=== PATIENT | female | born 1960 | race Caucasian/White ===

== ENCOUNTER 2017-07-14 08:51 | Inpatient (IN) | payer OTHER ==
[2017-06-22 08:46] VITALS: Ht 157.5 cm; Wt 81.6 kg
--- NOTE | 2017-06-22 09:17 | PAT Medication Instructions ---
Service Date Jun 22, 2017. Current Home Medication List Acetaminophen (Tylenol), 325 MG PO QD PRN for Pain Black Pepper-Turmeric (Turmeric Curcumin Complex 500-3 mg), 1 CAP PO QAM Cholecalciferol (Vitamin D3), 1 CAP PO QAM Fluticasone Propionate (Nasal) (Flonase Allergy Relief), 1 SPRAY NA QAM Montelukast Sodium (Singulair), 10 MG PO QAM Medication Instructions For Your Scheduled Surgery - Hold the following medications 2 weeks prior to surgery: Black Pepper-Turmeric (Turmeric Curcumin Complex 500-3 mg), 1 CAP PO QAM - Hold the following medications per your surgeon's instructions: Cholecalciferol (Vitamin D3), 1 CAP PO QAM - Take the following medications the morning of surgery with a sip of water: Fluticasone Propionate (Nasal) (Flonase Allergy Relief), 1 SPRAY NA QAM Montelukast Sodium (Singulair), 10 MG PO QAM Acetaminophen (Tylenol), 325 MG PO QD PRN for Pain (if needed, can be taken up to four hours before surgery) - Take the following medications as scheduled the night before surgery: Acetaminophen (Tylenol), 325 MG PO QD PRN for Pain (if needed) If you have any questions please call us at [phone] or [phone] or [phone]
[2017-06-22 11:02] LABS: BASO % 0.3 %; BASO ABS # 0.02 K/uL (0-0.2); EOS ABS # 0.07 K/uL (0-0.5); HEMATOCRIT 44.2 % (37-47); HEMOGLOBIN 15.1 g/dL (12.0-16.0); IG# 0.01 K/uL (0.00-0.02); LYMPH % 29.7 %; LYMPH ABS # 2.01 K/uL (1.2-3.4); MEAN CELL VOLUME 88.6 fL (80-100); MEAN CORPUSCULAR HEMOGLOBIN 30.3 pg (25-34); MEAN CORPUSCULAR HGB CONC 34.2 g/dl (32-36); MEAN PLATELET VOLUME 10.7 fL (7.4-10.4); MONO ABS # 0.34 K/uL (0.11-0.59); NEUT % 63.9 %; NEUT ABS # 4.31 K/uL (1.4-6.5); PLATELET COUNT 264 K/uL (130-400); RED CELL DISTRIBUTION WIDTH CV 13.8 % (11.5-14.5); RED CELL DISTRIBUTION WIDTH SD 44.8 fL (36.4-46.3); WHITE BLOOD COUNT 6.76 K/uL (4.8-10.8)
--- NOTE | 2017-06-22 11:09 | DIAGNOSTIC IMAGING REPORT ---
CHEST 2 VIEWS ROUTINE CLINICAL HISTORY: 57 years-old Female presenting with preoperative assessment. TECHNIQUE: PA and lateral views of the chest were obtained. COMPARISON: None. FINDINGS: Cardiomediastinal silhouette normal. Bandlike opacity at the left lung base. No other focal opacity. No pleural effusion or pneumothorax. Osseous structures normal. Upper abdomen normal. IMPRESSION: 1. Minimal left basilar atelectasis or scarring. No acute cardiopulmonary disease. Electronically signed by: Manny Wong M.D. 06/22/2017 11:08 AM Dictated Date/Time: 06/22/2017 11:07 AM
[2017-06-22 11:14] LABS: PTT PATIENT 26.4 SECONDS (21.0-31.0)
[2017-06-22 11:33] LABS: CREATININE 0.81 mg/dl (0.60-1.20); POTASSIUM 3.9 mmol/L (3.5-5.1)
--- NOTE | 2017-07-13 18:46 | HISTORY & PHYSICAL EXAMINATION ---
DATE OF ADMISSION: 07/14/2017 CHIEF COMPLAINT: Avascular necrosis of the right hip. HISTORY OF PRESENT ILLNESS: Ritu is a pleasant 57-year-old female who has been dealing with a several year history of increasing right hip pain. X-rays, clinical examination, and MRI of her hip have been diagnostic for avascular necrosis. After failing extensive conservative treatment, she has elected to proceed with a total hip arthroplasty. PAST MEDICAL HISTORY: Seasonal allergies. PAST SURGICAL HISTORY: Significant for surgery to her right clavicle. ALLERGIES: PENICILLIN. MEDICATIONS: Singulair, vitamin D, Flonase, turmeric, and ibuprofen. FAMILY HISTORY: Significant for diabetes. SOCIAL HISTORY: The patient is , rarely drinks and is very active prior to this hip pain. REVIEW OF SYSTEMS: She complains of right hip pain. All other pertinent review of systems are negative. PHYSICAL EXAMINATION: GENERAL: She is awake, alert and oriented x3. She is in no apparent distress. She is very pleasant. HEENT: Pupils are equal, round, reactive light. Extraocular movements are intact. Oral mucosa is pink and moist. HEART: Regular rate per radial pulse. LUNGS: Lupe symmetrically bilaterally with no audible breath sounds. ABDOMEN: Soft, nontender, nondistended. MUSCULOSKELETAL: On physical examination of the right hip, her leg lengths are equal. She can flex her hip to about 90 degrees. She has a lot of groin pain. She has pain with internal and external rotation of her hip. She only has about 10 degrees of forced internal rotation. She has 5/5 muscle strength to straight leg raise. IMAGING DATA: X-rays of the right hip do show advancing arthritis. There is some joint space narrowing and some signs of avascular necrosis. MRI of the right hip was read as avascular necrosis of the femoral head without significant collapse at this point. There is also some mild degenerative arthritis. IMPRESSION: Avascular necrosis of the right hip. PLAN: Will proceed with a right anterior total hip arthroplasty. Postoperatively, she will be kept on aspirin for DVT prophylaxis and kept overnight at the hospital for postoperative medical management.
[~2017-07-14] VITALS: Ht 157.5 cm; Wt 81.6 kg
[2017-07-14] VITALS (10 sets, daily range): BP systolic 88–162; BP diastolic 55–98; PULSE 66–102; TEMP 36.4–37; O2SAT 98–100
[~2017-07-14 08:51] MED LIST: ACET-1311 PO; ACETAMINOPHEN 500 MG TAB PO SCH; BLAC1CAP4 PO; BUPIVACAINE 0.5 % 5 MG/1 ML PF 10ML VIAL ONE; CEFAZOLIN 2000MG IV PUSH 15 ML IV SCH; CHOL2000 PO; FAMOTIDINE 20 MG TAB PO SCH; FLUT0.15; GABAPENTIN 300 MG CAP PO SCH; LACTATED RINGER'S 1000ML 1,000 ML IV SCH; LACTATED RINGER'S 1000ML IV SCH; MONT1TAB3 PO; ROPIVACAINE 5MG/ML 30 ML 150 MG, BUPIVACAINE 0.5% MPF INJ 30 ML, EpINEphrine HCL INJ 0.... INFIL SCH
--- NOTE | 2017-07-14 08:58 | History & Physical Bridge Note ---
H&P Re-Evaluation Bridge Note: I have examined the patient, reviewed the History & Physical and in the interval since the performance of the History & Physical I have noted the following changes of clinical significance: No changes noted
[2017-07-14] MEDS ORDERED: KETO10TA PO (09:05)
[2017-07-14] MEDS ORDERED: OXYC-57 PO (09:05)
[2017-07-14] MEDS ORDERED: MIDAZOLAM HCL 1 MG/ML 2ML VIAL ONE ×2 (09:12)
[2017-07-14] MEDS ORDERED: FENTANYL CITRATE INJ 50 MCG/1 ML 2 ML VIAL ONE (09:12)
[2017-07-14] MEDS ORDERED: ORTHO JOINT ANESTHETIC ONE (09:12)
[2017-07-14] MEDS ORDERED: BACITRACIN 50000 UNIT VIAL ONE (09:12)
[2017-07-14] MEDS ORDERED: ATROPINE SULFATE 0.1 MG/ML 5ML SYR IV PRN (09:45)
[2017-07-14] MEDS ORDERED: EpHEDrine SULFATE INJ 50 MG/ML AMP IV PRN (09:45)
[2017-07-14] MEDS ORDERED: FENTANYL CITRATE INJ 50 MCG/1 ML 2 ML VIAL IV PRN (09:45)
[2017-07-14] MEDS ORDERED: ONDANSETRON INJ 2 MG/ML 2 ML VIAL IV PRN ×2 (09:45→12:00)
[2017-07-14] MEDS: TRANEXAMIC ACID INJ 1,000 MG x 2 Bags IV SCH ×4 (09:47→15:05)
[2017-07-14] MEDS ORDERED: PHENYLEPHRINE 100MCG/ML 5ML SYR ONE (10:48)
[2017-07-14] MEDS ORDERED: EpHEDrine SULFATE 50MG/5ML SYR ONE (10:48)
[2017-07-14] MEDS ORDERED: PROPOFOL IV EMULSION 10 MG/ML 20 ML VIAL IV ONE ×4 (10:48→11:32)
--- NOTE | 2017-07-14 11:51 | DIAGNOSTIC IMAGING REPORT ---
R HIP UNILATERAL 1 VIEW CLINICAL HISTORY: Right anterior total hip arthroplasty Fluoroscopy time: 41 seconds FINDINGS: 2 fluoroscopic spot images of the right hip demonstrate a right total hip arthroplasty. The hardware appears intact. No fracture or dislocation identified. IMPRESSION: Fluoroscopy provided for right total hip arthroplasty. Electronically signed by: Dario Robledo M.D. 07/14/2017 11:49 AM Dictated Date/Time: 07/14/2017 11:49 AM
--- NOTE | 2017-07-14 11:54 | [facility] Post Operative Brief Note ---
Immediate Operative Summary Operative Date Jul 14, 2017. Pre-Operative Diagnosis Avascular Necrosis of the Right Hip. Post-Operative Diagnosis Same Procedure(s) Performed Right Total Anterior Hip Arthroplasty, Uncemented Surgeon Dr. Louis Hernandez Saddle Lining Stitcher Surgeon(s) Jama Richardson PA-C Estimated Blood Loss 350ml Findings Consistent with Post-Op Diagnosis Specimens A.) Right Femoral Head Anesthesia Type MAC Spinal Regional Complication(s) head of acetabular screw broke off. Head retreived. Good press-fit of the cup. No further action necessary Disposition Disposition: Recovery Room / PACU
[2017-07-14] MEDS ORDERED: FLUMAZENIL 0.1 MG/1 ML 10 ML VIAL IV ONE (11:55)
[2017-07-14] MEDS ORDERED: MoRPHine SULFATE 2 MG/ML CARP IV PRN (12:00)
[2017-07-14] MEDS ORDERED: MAGNESIUM HYDROXIDE SUSP 30 ML UDC PO PRN (12:00)
[2017-07-14] MEDS ORDERED: CEFAZOLIN IV 2,000 MG in DEXTROSE 5% 50ML 50 ML IV SCH (12:00)
[2017-07-14] MEDS ORDERED: SOD PHOSPHATE/SOD BIPHOSPHATE ENEMA 132 ML BTL PR PRN (12:00)
[2017-07-14] MEDS ORDERED: OXYCODONE HCL IR 5 MG TAB (IMMEDIATE RELEASE) PO PRN (12:00)
[2017-07-14] MEDS ORDERED: BISACODYL 10 MG SUPP PR PRN (12:00)
[2017-07-14] MEDS ORDERED: METOCLOPRAMIDE HCL INJ 5 MG/ML 2 ML VIAL IV PRN (12:00)
--- NOTE | 2017-07-14 12:48 | OPERATIVE REPORT ---
DATE OF OPERATION: 07/14/2017 PREOPERATIVE DIAGNOSIS: Avascular necrosis of the right hip. POSTOPERATIVE DIAGNOSIS: Same. PROCEDURE: Right anterior total hip arthroplasty. SURGEON: Dr. Louis Hernandez. CHEMICAL ENGINEERING INTERN: Jama Richardson PA-C, whose assistance was necessary for retraction and closure. ANESTHESIA: Spinal with sedation. COMPLICATIONS: There was a head of the acetabular screw broke off. The head was retrieved. There was an excellent press fit of the cup and no further fixation was necessary. CONDITION: Stable to PACU. IMPLANTS USED: I used a [employer]omet Taperloc total hip arthroplasty system with a size 8 mm high offset Taperloc stem, a 50 mm G7 cup, a 36 mm neutral liner, a 36 mm ceramic head with a -6 neck and a single 6.5 x 30 mm screw which the head broke off of. INDICATIONS: Ritu is a pleasant 57-year-old female who presented to my office with increasing right hip and groin pain. X-rays, MRI and clinical examination were diagnostic for avascular necrosis of the right hip. After failing conservative treatment, she elected to undergo a total hip arthroplasty. OPERATION AND FINDINGS: On 07/14/2017, she arrived at [facility] for the above procedure. She was seen in preoperative holding and the operative extremity was identified and signed. She was given a preoperative antibiotic and a spinal anesthetic. She was taken back to the operating room, laid on the table in supine position and given basic sedation. The right hip was then brought out to a PURIST leg positioner. The right hip was then prepped and draped in sterile fashion. Time-out was done, and the patient and operative extremity was properly identified. An anterior approach was used. Dissection was taken down through the fascia and the tensor was retracted laterally and the rectus was retracted medially. The circumflex vessels were ligated. The capsule was incised and tagged for later repair. The femoral neck was exposed. The femoral neck was then resected and the head was removed. The acetabulum was then exposed. Time was spent doing a complete circumferential labral release. Sequential reaming of the acetabulum up to a size 49 reamer was done. This gave good circumferential bleeding bone. Final reamings were done under fluoroscopy to ensure appropriate version. A size 50 mm G7 cup was then impacted into place. I was able to get an excellent press fit. A single 6.5 x 30 mm screw was placed. On final turning of the screw, the head broke off of the screw. The head was retrieved. I did get such a good press fit that I did not feel that any further fixation was necessary. The 36 mm neutral liner was then snapped into place. The surrounding soft tissues were injected with 100 mL of an orthopedic pain control cocktail. The proximal femur was then exposed. Sequential broaching up to a size 8 broach was done. A high offset neck and a standard head were trialed. The hip was reduced. I was happy with the size of the implants, but the leg seemed to be long. The hip was then dislocated. The broach was removed. The final size 8 mm high offset stem was then impacted into place. A 36 mm ceramic head with -6 neck was then impacted into place. The hip was then reduced. Final fluoroscopic images showed anatomic alignment and good sizing of the components. The wound was then irrigated with 3 liters normal saline solution with bacitracin. The capsule was then closed with #1 Vicryl suture. A drain was placed. Fascia was closed with #1 PDS suture. Skin was closed with 2-0 Vicryl and anum. A Prevena VAC dressing was placed. She was then taken to the postanesthesia care in stable condition. She tolerated the procedure well. I attest to the content of the Intraoperative Record and any orders documented therein. Any exception s are noted below.
--- NOTE | 2017-07-14 12:52 | DIAGNOSTIC IMAGING REPORT ---
AP PELVIS, CROSSTABLE LATERAL RIGHT HIP History: Right total hip arthroplasty. Degenerative arthritis. Postop. FINDINGS: The patient is status post a right total hip arthroplasty. The hardware is intact. No fracture or dislocation. Skin anum and surgical drains are in place. IMPRESSION: Right total hip arthroplasty. No evidence for hardware complication Electronically signed by: Dario Robledo M.D. 07/14/2017 12:51 PM Dictated Date/Time: 07/14/2017 12:45 PM
--- NOTE | 2017-07-14 13:36 | Anesthesiology Progress Note ---
Anesthesia Post Op Note Date & Time Jul 14, 2017 at 13:36 Vital Signs Pain Intensity: 0 Vital Signs Past 12 Hours Date Time Temp Pulse Resp B/P (MAP) Pulse Ox O2 Delivery O2 Flow Rate FiO2 07/14/17 13:18 62 14 07/14/17 13:18 63 14 100 07/14/17 13:15 94/63 07/14/17 13:13 63 12 100 07/14/17 13:13 64 12 07/14/17 13:10 95/63 07/14/17 13:08 65 14 100 07/14/17 13:08 60 14 07/14/17 13:05 95/67 07/14/17 13:03 65 15 07/14/17 13:03 65 15 100 07/14/17 13:02 96/63 07/14/17 13:00 37.1 70 14 96/63 100 Nasal Cannula 2 07/14/17 12:58 69 25 07/14/17 12:58 69 25 100 07/14/17 12:56 94/58 07/14/17 12:53 74 28 07/14/17 12:53 75 28 100 07/14/17 12:52 81 36 07/14/17 12:52 82 36 99/63 100 07/14/17 12:47 74 24 07/14/17 12:47 75 24 100 07/14/17 12:46 107/68 07/14/17 12:42 75 18 07/14/17 12:42 74 18 100 07/14/17 12:41 121/54 07/14/17 12:37 80 22 07/14/17 12:37 78 22 100 07/14/17 12:36 90/57 07/14/17 12:32 82 25 100 07/14/17 12:32 86 25 07/14/17 12:31 96/63 07/14/17 12:27 88 17 07/14/17 12:27 87 17 100 07/14/17 12:26 102/68 07/14/17 12:22 86 25 07/14/17 12:22 86 25 100 07/14/17 12:21 120/91 07/14/17 12:19 100/67 07/14/17 12:17 88 19 07/14/17 12:17 85 19 100 07/14/17 12:12 88 25 07/14/17 12:12 88 25 100 07/14/17 12:07 36.6 82 16 111/76 99 Oxymask 10 07/14/17 12:07 95 23 111/76 100 07/14/17 12:07 95 23 07/14/17 09:37 37 71 18 162/98 100 Room Air Notes Mental Status: alert / awake / arousable, participated in evaluation Pt Amnestic to Procedure: Yes Nausea / Vomiting: adequately controlled Pain: adequately controlled Airway Patency, RR, SpO2: stable & adequate BP & HR: stable & adequate Hydration State: stable & adequate Neuraxial Anesthesia: was administered, sensory block is resolving Anesthetic Complications: no major complications apparent
[2017-07-14] MEDS: SODIUM CHLORIDE 0.9% 1000ML 1,000 ML IV SCH ×2 (15:03→20:13)
[2017-07-14] MEDS: KETOROLAC TROMETHAMINE 30 MG/ML VIAL IV. SCH ×2 (15:03→20:23)
[2017-07-14] MEDS: CEFAZOLIN IV 2,000 MG in SYRINGE 0 ML IV SCH (19:24)
[2017-07-14 19:27] LABS: BASO % 0.1 %; BASO ABS # 0.01 K/uL (0-0.2); HEMATOCRIT 31.2 % (37-47); HEMOGLOBIN 10.7 g/dL (12.0-16.0); IG# 0.04 K/uL (0.00-0.02); LYMPH % 7.6 %; LYMPH ABS # 0.97 K/uL (1.2-3.4); MEAN CELL VOLUME 87.6 fL (80-100); MEAN CORPUSCULAR HEMOGLOBIN 30.1 pg (25-34); MEAN CORPUSCULAR HGB CONC 34.3 g/dl (32-36); MEAN PLATELET VOLUME 10.4 fL (7.4-10.4); MONO % 4.6 %; MONO ABS # 0.59 K/uL (0.11-0.59); NEUT % 87.4 %; NEUT ABS # 11.11 K/uL (1.4-6.5); PLATELET COUNT 216 K/uL (130-400); RED CELL DISTRIBUTION WIDTH CV 13.5 % (11.5-14.5); RED CELL DISTRIBUTION WIDTH SD 43.6 fL (36.4-46.3); WHITE BLOOD COUNT 12.72 K/uL (4.8-10.8)
[2017-07-14] MEDS ORDERED: NURSING VERBAL MED ORDER ONE ×2 (19:30→19:45)
[2017-07-14] MEDS ORDERED: SODIUM CHLORIDE 0.9% 1000ML 1,000 ML IV ONE (19:45)
[2017-07-14 19:56] LABS: ALBUMIN 2.8 gm/dl (3.4-5.0); CREATININE 1.19 mg/dl (0.60-1.20); POTASSIUM 3.7 mmol/L (3.5-5.1)
[2017-07-14] MEDS: ACETAMINOPHEN IV 1,000 MG in EMPTY BAG 0 ML IV SCH (20:14)
[2017-07-14] MEDS: SENNA 8.6 MG TAB PO SCH (20:18)
[2017-07-14] MEDS: DOCUSATE SODIUM 100 MG CAP PO SCH (20:19)
[2017-07-14] MEDS: ASPIRIN 325 MG ECTAB PO SCH (20:19)
--- NOTE | 2017-07-14 21:27 | Medical Consult ---
Consultation Date of Consultation: Jul 14, 2017. Attending Physician: Louis Hernandez DO Reason for Consultation: presyncope History of Present Illness 57 years old female with no PMHx presened to the hospital for elective right total hip replacement after failing outpatient conservative management. Patient had a presyncope while she is trying to take a bath in the bathroom. Was extremely pale and hypotensive I responded to code purple Social History Smoking Status: Never Smoker Allergies Coded Allergies: Adhesives (Verified Allergy, Unknown, redness and bumps, 07/14/17) Crab (Verified Allergy, Unknown, swelling and itching, 07/14/17) Levofloxacin (Verified Allergy, Unknown, whoozy, 07/14/17) Moxifloxacin (Verified Allergy, Unknown, Muscle cramping, 07/14/17) Penicillins (Verified Allergy, Unknown, itching, 07/14/17) Amoxicillin (Verified Adverse Reaction, Unknown, diarrhea, 07/14/17) Clavulanic Acid (Verified Adverse Reaction, Unknown, diarrhea, 07/14/17) Uncoded Allergies: ENVIRONMENTAL (Allergy, Unknown, swelling, itching, 06/22/17) cats, dust, kpox Current Inpatient Medications Current Inpatient Medications Medications (Trade) Dose Ordered Sig/Magalie Route Start Time Stop Time Status Last Admin Dose Admin Fluticasone Propionate (Flonase Nasal Arnot) 1 sprays QAM NA 07/15/17 09:00 08/14/17 08:59 Montelukast Sodium (Singulair Tab) 10 mg QAM PO 07/15/17 09:00 08/14/17 08:59 Sodium Chloride 1,000 ml @ 100 mls/hr Q10H IV 07/14/17 14:15 07/15/17 14:14 07/14/17 20:13 100 MLS/HR Ketorolac Tromethamine (Toradol Inj) 30 mg Q6H IV. 07/14/17 14:00 07/16/17 13:59 07/14/17 20:23 30 MG Oxycodone HCl (Roxicodone Immediate Rel Tab) 1 TABLET FOR PAIN RATING... Q4H PRN PO 07/14/17 12:00 07/28/17 11:59 Morphine Sulfate (MoRPHine SULFATE INJ) 2 mg Q2HWA PRN IV 4/10/18 12:00 07/28/17 11:59 Acetaminophen 1000 mg/Empty Bag 100 ml @ 400 mls/hr Q8H IV 07/14/17 20:00 07/15/17 19:59 07/14/17 20:14 400 MLS/HR Acetaminophen (Tylenol Tab) 1,000 mg Q8 PO 07/15/17 22:00 08/14/17 21:59 Magnesium Hydroxide (Milk Of Magnesia Susp) 30 ml Q6H PRN PO 07/14/17 12:00 08/13/17 11:59 Bisacodyl (Dulcolax Supp) 10 mg DAILY PRN SD 07/14/17 12:00 08/13/17 11:59 Sodium Biphosphate/ Sodium Phosphate (Fleet Enema) 132 ml DAILY PRN SD 07/14/17 12:00 08/13/17 11:59 Senna (Senokot Tab) 17.2 mg HS PO 07/14/17 21:00 08/13/17 20:59 07/14/17 20:18 17.2 MG Docusate Sodium (coLACE CAP) 100 mg BID PO 07/14/17 21:00 08/13/17 20:59 07/14/17 20:19 100 MG Multivitamins (Multivitamin Tab) 1 tab QAM PO 07/15/17 09:00 08/14/17 08:59 Ondansetron HCl (Zofran Inj) 4 mg Q6H PRN IV 07/14/17 12:00 08/13/17 11:59 Metoclopramide HCl (Reglan Inj) 10 mg Q6H PRN IV 07/14/17 12:00 08/13/17 11:59 Aspirin (Ecotrin Tab) 325 mg BID PO 07/14/17 21:00 08/13/17 20:59 07/14/17 20:19 325 MG Cefazolin Sodium 2000 mg/Syringe 15 ml @ 3.75 mls/ min Q8H IV 07/14/17 18:00 07/15/17 02:03 07/14/17 19:24 3.75 MLS/MIN Review of Systems Constitutional: + weakness, + fatigue, No fever, No chills, No sweats, No weight loss, No problem reported Eyes: No worsening of vision, No eye pain, No redness, No discharge, No diplopia, No problem reported ENT: No hearing loss, No unusual epistaxis, No nasal symptoms, No sore throat, No tinnitus, No dental problems, No trouble swallowing, No problem reported Respiratory: No cough, No sputum, No wheezing, No shortness of breath, No dyspnea on exertion, No dyspnea at rest, No hemoptysis, No problem reported Cardiovascular: No chest pain, No orthopnea, No PND, No edema, No claudication , No palpitations, No problem reported Abdomen: No pain, No nausea, No vomiting, No diarrhea, No constipation, No GI bleeding, No problem reported Musculoskeletal: No joint pain, No muscle pain, No swelling, No calf pain, No problem reported Genitourinary - Female: No dysuria, No urinary frequency, No urinary urgency, No urinary incontinence, No urinary retention, No hematuria, No dysmenorrhea, No menorrhagia, No metrorrhagia, No rash, No vaginal bleeding, No vaginal discharge, No vaginal itching, No vulvodynia, No , No problem reported Neurologic: No memory loss, No paralysis, No weakness, No numbness/tingling, No vertigo, No balance problems, No problem reported Psychiatric: No depression symptoms, No anhedonism, No anxiety, No insomnia, No substance abuse, No problem reported Endocrine: + fatigue, No excessive thirst, No excessive urination, No problem reported Hematologic / Lymphatic: No abnormal bleeding/bruising, No clotting problems, No swollen lymph nodes, No night sweats, No problem reported Integumentary: No rash, No itch, No new/changing skin lesions, No color change , No bleeding, No problem reported Allergic / Immunologic: No environmental allergies, No seasonal allergies, No pet sensitivities, No food allergies, No hives, No frequent infections, No poor healing, No prolonged convalescence, No problem reported Physical Exam Date Time Temp Pulse Resp B/P (MAP) Pulse Ox O2 Delivery O2 Flow Rate FiO2 07/14/17 16:20 36.4 102 18 108/74 (85) 98 07/14/17 15:32 36.6 85 18 104/71 (82) 100 Nasal Cannula 2.0 07/14/17 14:30 74 16 90/60 (70) 100 07/14/17 14:00 70 15 97/66 (76) 99 07/14/17 13:35 Nasal Cannula 4/10/18 13:35 Nasal Cannula 2.0 07/14/17 13:18 62 14 07/14/17 13:18 63 14 100 07/14/17 13:15 94/63 07/14/17 13:13 63 12 100 07/14/17 13:13 64 12 07/14/17 13:10 95/63 07/14/17 13:08 65 14 100 07/14/17 13:08 60 14 07/14/17 13:05 95/67 07/14/17 13:03 65 15 07/14/17 13:03 65 15 100 07/14/17 13:02 96/63 07/14/17 13:00 37.1 70 14 96/63 100 Nasal Cannula 2 07/14/17 12:58 69 25 07/14/17 12:58 69 25 100 07/14/17 12:56 94/58 07/14/17 12:53 74 28 07/14/17 12:53 75 28 100 07/14/17 12:52 81 36 07/14/17 12:52 82 36 99/63 100 07/14/17 12:47 74 24 07/14/17 12:47 75 24 100 07/14/17 12:46 107/68 07/14/17 12:42 75 18 07/14/17 12:42 74 18 100 07/14/17 12:41 121/54 07/14/17 12:37 80 22 07/14/17 12:37 78 22 100 07/14/17 12:36 90/57 07/14/17 12:32 82 25 100 07/14/17 12:32 86 25 07/14/17 12:31 96/63 07/14/17 12:27 88 17 07/14/17 12:27 87 17 100 07/14/17 12:26 102/68 07/14/17 12:22 86 25 07/14/17 12:22 86 25 100 07/14/17 12:21 120/91 07/14/17 12:19 100/67 07/14/17 12:17 88 19 07/14/17 12:17 85 19 100 07/14/17 12:12 88 25 07/14/17 12:12 88 25 100 07/14/17 12:07 36.6 82 16 111/76 99 Oxymask 10 07/14/17 12:07 95 23 111/76 100 07/14/17 12:07 95 23 07/14/17 09:37 37 71 18 162/98 100 Room Air General Appearance: + mild distress Head: normocephalic, atraumatic Eyes: normal inspection, EOMI ENT: normal ENT inspection, hearing grossly normal Neck: supple Respiratory/Chest: chest non-tender, lungs clear, normal breath sounds, no respiratory distress, no accessory muscle use Cardiovascular: regular rate, rhythm, no edema, no gallop, no JVD, no murmur, normal peripheral pulses Abdomen/GI: normal bowel sounds, non tender, soft, no organomegaly, no pulsatile mass Back: normal inspection, no CVA tenderness, no muscle spasm, normal range of motion Extremities/Musculoskelatal: normal inspection, no calf tenderness, normal capillary refill, no pedal edema, normal range of motion Neurologic/Psych: 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 nml as tested, no motor/sensory deficits, alert, normal mood/affect, normal reflexes, oriented x 3 Skin: warm/dry, + pallor Laboratory Results Last 24 Hours Test 07/14/17 18:57 07/14/17 19:05 07/14/17 19:18 Bedside Glucose 221 mg/dl White Blood Count 12.72 K/uL Red Blood Count 3.56 M/uL Hemoglobin 10.7 g/dL Hematocrit 31.2 % Mean Corpuscular Volume 87.6 fL Mean Corpuscular Hemoglobin 30.1 pg Mean Corpuscular Hemoglobin Concent 34.3 g/dl Platelet Count 216 K/uL Mean Platelet Volume 10.4 fL Neutrophils (%) (Auto) 87.4 % Lymphocytes (%) (Auto) 7.6 % Monocytes (%) (Auto) 4.6 % Eosinophils (%) (Auto) 0.0 % Basophils (%) (Auto) 0.1 % Neutrophils # (Auto) 11.11 K/uL Lymphocytes # (Auto) 0.97 K/uL Monocytes # (Auto) 0.59 K/uL Eosinophils # (Auto) 0.00 K/uL Basophils # (Auto) 0.01 K/uL RDW Standard Deviation 43.6 fL RDW Coefficient of Variation 13.5 % Immature Granulocyte % (Auto) 0.3 % Immature Granulocyte # (Auto) 0.04 K/uL Sodium Level 138 mmol/L Potassium Level 3.7 mmol/L Chloride Level 110 mmol/L Carbon Dioxide Level 20 mmol/L Anion Gap 8.0 mmol/L Blood Urea Nitrogen 13 mg/dl Creatinine 1.19 mg/dl Est Creatinine Clear Calc Drug Dose 52.3 ml/min Estimated GFR () 59.1 Estimated GFR (Non- 51.0 BUN/Creatinine Ratio 10.6 Random Glucose 236 mg/dl Calcium Level 8.0 mg/dl Magnesium Level 1.9 mg/dl Total Bilirubin 0.5 mg/dl Aspartate Amino Transf (AST/SGOT) 21 U/L Alanine Aminotransferase (ALT/SGPT) 28 U/L Alkaline Phosphatase 65 U/L Total Protein 6.0 gm/dl Albumin 2.8 gm/dl Globulin 3.2 gm/dl Albumin/Globulin Ratio 0.9 Prothrombin Time 10.7 SECONDS Prothromb Time International Ratio 1.0 Assessment & Plan Assessment: Presyncope secondary to below Vasovagal Acute blood loss anemia, hemoglobin dropped from 15 to 10 g Hypovolemic hypotension severe osteoarthritis that failed outpatient conservative measures. Patient presented to the hospital for an elective orthopedic procedure Plan Status post orthopedic procedure, went uneventful full Transfuse 1 units of blood Status post 1 L IV fluid bolus Patient tolerated procedure well Appears to be stable Continue outpatient medications Follow-up labs Ensure adequate oral/parenteral intake Pain management Physical therapy initiation as per primary orthopedic team DVT prophylaxis as per the choice of primary orthopedic team
[2017-07-15] MEDS: CEFAZOLIN IV 2,000 MG in SYRINGE 0 ML IV SCH (02:38)
[2017-07-15] MEDS: KETOROLAC TROMETHAMINE 30 MG/ML VIAL IV. SCH ×4 (02:38→20:38)
[2017-07-15 03:21] LABS: HEMATOCRIT 26.9 % (37-47); IG# 0.04 K/uL (0.00-0.02); LYMPH % 6.8 %; LYMPH ABS # 0.98 K/uL (1.2-3.4); MEAN CELL VOLUME 88.5 fL (80-100); MEAN CORPUSCULAR HEMOGLOBIN 29.6 pg (25-34); MEAN CORPUSCULAR HGB CONC 33.5 g/dl (32-36); MEAN PLATELET VOLUME 10.4 fL (7.4-10.4); MONO % 7.5 %; MONO ABS # 1.07 K/uL (0.11-0.59); NEUT % 85.4 %; NEUT ABS # 12.23 K/uL (1.4-6.5); PLATELET COUNT 196 K/uL (130-400); RED CELL DISTRIBUTION WIDTH CV 13.7 % (11.5-14.5); RED CELL DISTRIBUTION WIDTH SD 44.4 fL (36.4-46.3); WHITE BLOOD COUNT 14.32 K/uL (4.8-10.8)
[2017-07-15 03:41] LABS: ALBUMIN 2.5 gm/dl (3.4-5.0); CALCIUM 7.9 mg/dl (8.5-10.1); CREATININE 1.05 mg/dl (0.60-1.20); POTASSIUM 3.8 mmol/L (3.5-5.1)
[2017-07-15 03:44] LABS: TOTAL PROTEIN 5.3 gm/dl (6.4-8.2)
[2017-07-15 03:45] VITALS: BP 97/63; PULSE 60; TEMP 36.5; O2SAT 98
[2017-07-15] MEDS: ACETAMINOPHEN IV 1,000 MG in EMPTY BAG 0 ML IV SCH (03:59)
[2017-07-15] MEDS: SODIUM CHLORIDE 0.9% 1000ML 1,000 ML IV SCH ×2 (04:58→10:15)
[2017-07-15 08:51] VITALS: BP 101/66; PULSE 78; TEMP 36.5; O2SAT 99
--- NOTE | 2017-07-15 08:56 | PROGRESS NOTE ---
DATE: 07/15/2017 CHIEF COMPLAINT: Status post right total hip arthroplasty, postoperative day number 1. PROGRESS: Ritu was seen and examined at bedside today. She was sitting up in a chair. She has very little pain in her hip. She is very happy with her progress. She has been to ambulate some and has no complaints. She did have an episode where she went to the bathroom last night, she stated she was trying to give herself a sponge bath, she began having significant back pain and got lightheaded. She was brought down to the toilet by the staff. A medical consult was ordered for hypotension. Overall, she is feeling much better now. She did not want a blood transfusion at that time. She states she feels relatively asymptomatic and she feels great. She has some mild soreness in the hip, but it is not bad. She has no complaints. PHYSICAL EXAMINATION: RIGHT HIP: The Prevena VAC dressing is to suction. Her leg lengths are essentially equal. She is neurovascularly intact. She has active dorsiflexion and plantarflexion of her right ankle. LABORATORY DATA: She has an H and H today of 9.0 and 26.9. Her glucose is 138. Her vital signs show she is slightly hypotensive, but she has been hypotensive almost since her arrival. X-rays postoperatively of the right hip show the prosthesis to be in anatomic alignment without any evidence of fracture, dislocation, or loosening. IMPRESSION: Status post right total hip arthroplasty, postoperative day number 1. PLAN: Progress at this time, she is doing very well. She is currently asymptomatic, so I do not feel that blood transfusion would be necessary at this time. I encouraged her to drink plenty of fluids to help with her hypotension. She will be up and ambulating today with physical therapy and will go slow and steady. If she is doing well tomorrow morning, we will look to discharge to home. We will continue aspirin and TEDs and SCDs for DVT prophylaxis.
[2017-07-15] MEDS: FLUTICASONE PROPIONATE NA SPR 16 GM BTL SCH (09:25)
[2017-07-15] MEDS: ASPIRIN 325 MG ECTAB PO SCH ×2 (09:26→20:36)
[2017-07-15] MEDS: DOCUSATE SODIUM 100 MG CAP PO SCH ×2 (09:26→20:36)
[2017-07-15] MEDS: MONTELUKAST SOD 10 MG TAB PO SCH (09:26)
[2017-07-15] MEDS: MULTIVITAMIN TAB PO SCH (09:26)
--- NOTE | 2017-07-15 10:58 | Anesthesia Procedure Note ---
Anesthesia Epidural Removal Nt Date & Time Jul 15, 2017 at 10:58 Vital Signs Pain Intensity: 0.0 Vital Signs Past 12 Hours Date Time Temp Pulse Resp B/P (MAP) Pulse Ox O2 Delivery O2 Flow Rate FiO2 07/15/17 08:51 36.5 78 16 101/66 (78) 99 Room Air 07/15/17 08:00 Room Air 07/15/17 03:45 36.5 60 16 97/63 (74) 98 Room Air 07/14/17 23:50 98 Room Air 2.0 07/14/17 23:50 66 95/62 (73) Notes Mental Status: alert / awake / arousable, participated in evaluation Nausea / Vomiting: adequately controlled Pain: adequately controlled Airway Patency, RR, SpO2: stable & adequate BP & HR: stable & adequate Hydration State: stable & adequate Neuraxial Anesthesia: was administered Anesthetic Complications: no major complications apparent, pt satisfied with anesthetic care Epidural: removed without complications, with tip intact
[2017-07-15 11:12] LABS: HEMATOCRIT 27.6 % (37-47); HEMOGLOBIN 9.4 g/dL (12.0-16.0)
[2017-07-15 12:02] VITALS: BP 100/70; PULSE 64; TEMP 36.4; O2SAT 100
[2017-07-15 15:08] VITALS: BP 100/68; PULSE 71; TEMP 36.5; O2SAT 100
[2017-07-15] MEDS: ACETAMINOPHEN/CODEINE 300/30MG TAB PO PRN ×2 (16:15→20:38)
[2017-07-15] MEDS ORDERED: IRON SUCROSE IV ONE (16:30)
[2017-07-15] MEDS ORDERED: SODIUM CHLORIDE 0.9% IV ONE (16:30)
--- NOTE | 2017-07-15 16:30 | Progress Note ---
Subjective Date of Service: Jul 15, 2017. Subjective Pt evaluation today including: conversation w/ patient, physical exam, chart review, lab review, review of inpatient medication list Pain: controlled PO Intake: adequate feeling better currently asymptomatic refused blood transfusion yesterday Review of Systems Review of system Constitutional: No fever / no chills / no sweats / no weakness / no fatigue Eyes: no blurring of vision / no eye pain / no discharge / no redness ENT: no hearing loss / no epistaxis /no swallowing problems Respiratory: no cough / no wheezing / no SOB / no hemoptysis Cardiovascular: no Chest pain / no lower extremity edema / no palpitation Abdomen: no pain / no nausea / no vomiting / no constipation Musculoskeletal: no joint pain / no muscle pain / no joint swelling Genitourinary: no dysuria / no incontinence / no urinary retention Neurologic: no focal weakness / no numbness/tingling / no ataxia Psychiatric: no depression symptoms / no anxiety / no insomnia Endocrine: no excessive thirst / no excessive urination Hematologic: no abnormal bleeding / no bruising / no LN swelling Skin: No rash / no pallor Medications Current Inpatient Medications Medications (Trade) Dose Ordered Sig/Magalie Route Start Time Stop Time Status Last Admin Dose Admin Fluticasone Propionate (Flonase Nasal [place]) 1 sprays QAM NA 07/15/17 09:00 08/14/17 08:59 07/15/17 09:25 1 SPRAYS Montelukast Sodium (Singulair Tab) 10 mg QAM PO 07/15/17 09:00 08/14/17 08:59 07/15/17 09:26 10 MG Ketorolac Tromethamine (Toradol Inj) 30 mg Q6H IV. 07/14/17 14:00 07/16/17 13:59 07/15/17 13:54 30 MG Morphine Sulfate (MoRPHine SULFATE INJ) 2 mg Q2HWA PRN IV 07/14/17 12:00 07/28/17 11:59 Magnesium Hydroxide (Milk Of Magnesia Susp) 30 ml Q6H PRN PO 07/14/17 12:00 08/13/17 11:59 Bisacodyl (Dulcolax Supp) 10 mg DAILY PRN [place] 07/14/17 12:00 08/13/17 11:59 Sodium Biphosphate/ Sodium Phosphate (Fleet Enema) 132 ml DAILY PRN [place] 07/14/17 12:00 08/13/17 11:59 Senna (Senokot Tab) 17.2 mg HS PO 07/14/17 21:00 08/13/17 20:59 07/14/17 20:18 17.2 MG Docusate Sodium (coLACE CAP) 100 mg BID PO 07/14/17 21:00 08/13/17 20:59 07/15/17 09:26 100 MG Multivitamins (Multivitamin Tab) 1 tab QAM PO 07/15/17 09:00 08/14/17 08:59 07/15/17 09:26 1 TAB Ondansetron HCl (Zofran Inj) 4 mg Q6H PRN IV 07/14/17 12:00 08/13/17 11:59 Metoclopramide HCl (Reglan Inj) 10 mg Q6H PRN IV 07/14/17 12:00 08/13/17 11:59 Aspirin (Ecotrin Tab) 325 mg BID PO 07/14/17 21:00 08/13/17 20:59 07/15/17 09:26 325 MG Acetaminophen/ Codeine Phosphate (Tylenol w/ Codeine #3 Tab) 1 tab Q4H PRN PO 07/15/17 07:45 08/14/17 07:44 07/15/17 16:15 1 TAB Ferrous Sulfate (Feosol Tab) 325 mg BIDM PO 07/15/17 17:45 08/14/17 17:44 UNV Senna/Docusate Sodium (Senokot S Tab) 1 tab BID PO 07/15/17 21:00 08/14/17 20:59 UNV Iron Sucrose 100 mg/Sodium Chloride 505 ml @ 420 mls/hr DAILY STAT IV 07/15/17 16:20 07/15/17 17:32 UNV Objective Vital Signs Date Time Temp Pulse Resp B/P (MAP) Pulse Ox O2 Delivery O2 Flow Rate FiO2 07/15/17 15:08 36.5 71 16 100/68 (79) 100 Room Air 07/15/17 12:02 36.4 64 16 100/70 (80) 100 Room Air 07/15/17 08:51 36.5 78 16 101/66 (78) 99 Room Air 07/15/17 08:00 Room Air 07/15/17 03:45 36.5 60 16 97/63 (74) 98 Room Air 07/14/17 23:50 98 Room Air 2.0 07/14/17 23:50 66 95/62 (73) 07/14/17 22:55 36.7 71 15 88/55 (66) 98 Room Air 07/14/17 19:05 36.4 79 18 95/65 (75) 100 07/14/17 19:00 81 88/62 (71) 100 2.0 Physical Exam Comments: Physical examination General patient appears to be comfortable, not in acute distress HEENT: Atraumatic , normocephalic /no jaundice /no pallor /anicteric /no dry mucous membrane /normal external ear inspection Neck: Supple /no swelling /central trach Heart: S1/S2 normal/regular rate and rhythm/no gallop /no rub /no murmur Lungs: Clear to auscultation bilaterally/normal chest with expansion/no rhonchi/ no rales/no wheezing/no use of accessory muscles of respiration Abdomen: Soft/nontender/no guarding/no rebound/no organomegaly/no pulsatile mass Musculoskeletal: No swelling/no edema/no tenderness/normal range of motion Neuro exam: Awake alert oriented 3/cranial nerves II through XII appear to be intact/sensation intact/moves all extremities/no abnormal movements Psychiatric evaluation: No depressed mood/normal affect Skin: No rash on exposed skin area/no erythema Extremity: Normal pulse/no pitting edema/no clubbing or cyanosis Endocrine/lymphatic: No obvious lymphadenopathy /no lymphedema Laboratory Results Last 24 Hours Test 07/14/17 18:57 07/14/17 19:05 07/14/17 19:18 07/15/17 02:56 Bedside Glucose 221 mg/dl White Blood Count 12.72 K/uL 14.32 K/uL Red Blood Count 3.56 M/uL 3.04 M/uL Hemoglobin 10.7 g/dL 9.0 g/dL Hematocrit 31.2 % 26.9 % Mean Corpuscular Volume 87.6 fL 88.5 fL Mean Corpuscular Hemoglobin 30.1 pg 29.6 pg Mean Corpuscular Hemoglobin Concent 34.3 g/dl 33.5 g/dl Platelet Count 216 K/uL 196 K/uL Mean Platelet Volume 10.4 fL 10.4 fL Neutrophils (%) (Auto) 87.4 % 85.4 % Lymphocytes (%) (Auto) 7.6 % 6.8 % Monocytes (%) (Auto) 4.6 % 7.5 % Eosinophils (%) (Auto) 0.0 % 0.0 % Basophils (%) (Auto) 0.1 % 0.0 % Neutrophils # (Auto) 11.11 K/uL 12.23 K/uL Lymphocytes # (Auto) 0.97 K/uL 0.98 K/uL Monocytes # (Auto) 0.59 K/uL 1.07 K/uL Eosinophils # (Auto) 0.00 K/uL 0.00 K/uL Basophils # (Auto) 0.01 K/uL 0.00 K/uL RDW Standard Deviation 43.6 fL 44.4 fL RDW Coefficient of Variation 13.5 % 13.7 % Immature Granulocyte % (Auto) 0.3 % 0.3 % Immature Granulocyte # (Auto) 0.04 K/uL 0.04 K/uL Sodium Level 138 mmol/L 141 mmol/L Potassium Level 3.7 mmol/L 3.8 mmol/L Chloride Level 110 mmol/L 112 mmol/L Carbon Dioxide Level 20 mmol/L 22 mmol/L Anion Gap 8.0 mmol/L 7.0 mmol/L Blood Urea Nitrogen 13 mg/dl 15 mg/dl Creatinine 1.19 mg/dl 1.05 mg/dl Est Creatinine Clear Calc Drug Dose 52.3 ml/min 59.2 ml/min Estimated GFR () 59.1 68.8 Estimated GFR (Non- 51.0 59.3 BUN/Creatinine Ratio 10.6 13.9 Random Glucose 236 mg/dl 138 mg/dl Calcium Level 8.0 mg/dl 7.9 mg/dl Magnesium Level 1.9 mg/dl 2.0 mg/dl Total Bilirubin 0.5 mg/dl 0.4 mg/dl Aspartate Amino Transf (AST/SGOT) 21 U/L 18 U/L Alanine Aminotransferase (ALT/SGPT) 28 U/L 25 U/L Alkaline Phosphatase 65 U/L 58 U/L Total Protein 6.0 gm/dl 5.3 gm/dl Albumin 2.8 gm/dl 2.5 gm/dl Globulin 3.2 gm/dl 2.8 gm/dl Albumin/Globulin Ratio 0.9 0.9 Prothrombin Time 10.7 SECONDS Prothromb Time International Ratio 1.0 Test 07/15/17 11:02 Hemoglobin 9.4 g/dL Hematocrit 27.6 % Assessment and Plan Assessment: S/P Presyncope / Vasovagal Acute blood loss anemia, hemoglobin dropped from 15 to 9.4 g, currently stable Hypovolemic hypotension severe osteoarthritis that failed outpatient conservative measures. Patient presented to the hospital for an elective orthopedic procedure Plan Status post R ONI, went uneventful full ordered 1 units of blood yesterday but patient refused, today she appears more stable, blood pressure is slightly low but acceptable, will transfuse iron instead add ferrous sulfate oral plus stool softener Patient tolerated procedure well Appears to be stable Continue outpatient medications Follow-up labs Ensure adequate oral/parenteral intake Pain management Physical therapy initiation as per primary orthopedic team DVT prophylaxis as per the choice of primary orthopedic team
[2017-07-15] MEDS ORDERED: SODIUM CHLORIDE 0.9% IV SCH (17:00)
[2017-07-15] MEDS ORDERED: IRON SUCROSE INJ 100 MG in SODIUM CHLORIDE 0.9% 100ML 100 ML IV SCH (17:00)
[2017-07-15] MEDS ORDERED: IRON SUCROSE IV SCH (17:00)
[2017-07-15] MEDS: FERROUS SULFATE 325 MG TAB PO SCH (17:40)
[2017-07-15 19:20] LABS: HEMATOCRIT 27.3 % (37-47); HEMOGLOBIN 9.4 g/dL (12.0-16.0)
[2017-07-15] MEDS: SENNA 8.6 MG TAB PO SCH (20:36)
[2017-07-15] MEDS: DOCUSATE SODIUM/SENNA 50/8.6MG TAB PO SCH (20:36)
[2017-07-15] MEDS ORDERED: ACETAMINOPHEN 500 MG TAB PO SCH (22:00)
[2017-07-15 23:05] VITALS: BP 85/53; PULSE 88; TEMP 36.5; O2SAT 98
[2017-07-15 23:50] VITALS: BP 92/58
[2017-07-16] MEDS: KETOROLAC TROMETHAMINE 30 MG/ML VIAL IV. SCH ×2 (02:04→07:46)
[2017-07-16 06:10] VITALS: BP 101/69
[2017-07-16 06:57] VITALS: BP 96/66; PULSE 73; TEMP 36.6; O2SAT 98
[2017-07-16 07:02] LABS: BASO % 0.1 %; BASO ABS # 0.01 K/uL (0-0.2); EOS % 0.4 %; EOS ABS # 0.04 K/uL (0-0.5); HEMATOCRIT 26.4 % (37-47); HEMOGLOBIN 8.8 g/dL (12.0-16.0); IG# 0.03 K/uL (0.00-0.02); LYMPH % 24.9 %; LYMPH ABS # 2.29 K/uL (1.2-3.4); MEAN CELL VOLUME 89.5 fL (80-100); MEAN CORPUSCULAR HEMOGLOBIN 29.8 pg (25-34); MEAN CORPUSCULAR HGB CONC 33.3 g/dl (32-36); MEAN PLATELET VOLUME 10.3 fL (7.4-10.4); MONO % 8.6 %; MONO ABS # 0.79 K/uL (0.11-0.59); NEUT % 65.7 %; NEUT ABS # 6.03 K/uL (1.4-6.5); PLATELET COUNT 172 K/uL (130-400); RED CELL DISTRIBUTION WIDTH CV 14.2 % (11.5-14.5); RED CELL DISTRIBUTION WIDTH SD 46.5 fL (36.4-46.3); WHITE BLOOD COUNT 9.19 K/uL (4.8-10.8)
[2017-07-16] MEDS ORDERED: ACET-749 PO (07:33)
[2017-07-16 07:38] LABS: ALBUMIN 2.7 gm/dl (3.4-5.0); CALCIUM 8.6 mg/dl (8.5-10.1); CREATININE 0.8 mg/dl (0.60-1.20)
--- NOTE | 2017-07-16 08:02 | Discharge Instructions ---
Discharge Instructions Date of Service Jul 16, 2017. Admission Reason for Admission: Right Hip Degenerative Joint Disease Discharge Discharge Diagnosis / Problem: SAME ABOVE Discharge Goals Goal(s): Decrease discomfort, Improve function, Increase independence Activity Recommendations Activity Limitations: as noted below Lifting Limitations: gradually increase as tolerated Exercise/Sports Limitations: gradually increase as tolerated Weightbearing Status: Right weightbearing (as tolerated) . Instructions / Follow-Up Instructions / Follow-Up Activity and Therapy Recommendations: * If you are using [facility] then Physical Therapy will be provided until they feel you are ready to start Outpatient Physical Therapy. If you are not using a Home Health agency then Outpatient Physical Therapy should start about 3-5 days from your day of surgery. Therapy will last about 3-6 weeks * You were shown a series of exercises in the hospital. Do these exercises three times each day including the exercises you were shown in physical therapy. * Get up and walk several times each day.~ For the first four weeks, try not to stand or walk for more than one hour at a time. If you do stand or walk for more than one hour, you will not hurt anything, but your leg will likely swell.~ ~ * As you feel comfortable, you may change from the walker or crutches to a cane and~then to independent walking. Medications: * Narcotic You will likely be sent home from the hospital with a prescription for the narcotic pain medication that worked best throughout your stay. * Aspirin Most patients will be required to take Aspirin 325mg twice a day for 6 weeks after surgery. This is obtained [id number] and a prescription is not necessary. * Other medications may be prescribed for specific circumstances. If you have any questions, please call the office at . * Resume previous home medications unless otherwise instructed TEDs/Elastic Stockings: The white elastic stockings help limit swelling and prevent blood clots from forming in your legs. The more you wear them, the more they work. Wear them for six weeks. Dressing Care: You will likely have a purple VAC dressing after surgery. This dressing will keep the incision dry and promote early healing. After about 8 days the batteries will wear out and the VAC will lose suction. Simply remove the dressing at that time and throw everything away, including the small suction machine. Then, you may leave the anum open to air or cover them with a dry dressing so they do not rub on your pants. The anum will be removed at your 2 week follow-up appointment. Showering: You may shower immediately with the purple VAC dressing. Let the shower spray hit your opposite side and slowly pat the plastic dry. Do not soak the dressing. After the dressing is removed you may shower normally with the anum exposed. Let soapy water run over the anum and pat them dry. Things To Watch For: * Drainage from the incision site that occurs more than one week after your surgery. * Increased redness at the incision site. * Fever above 102 degrees Fahrenheit. * Unusual chest pain or shortness of breath. * Call [facility] at with any of the above problems Follow-Up Visit: Follow-up with Dr. Hernandez 2 weeks after your day of surgery. An appointment was probably scheduled when you signed-up for surgery in the office. If you have any questions call Office Instructions: More detailed instructions as well as Frequently Asked Questions were provided in a folder by our office when you signed-up for surgery. Please review these instructions when you get home. If you have any further questions or concerns, please feel free to call the office at [phone] Current Hospital Diet Patient's current hospital diet: Regular Diet Discharge Diet Recommended Diet: Regular Diet Fluid Restriction: None Procedures Procedures Performed: Right Total Anterior Hip Arthroplasty, Uncemented Pending Studies Studies pending at discharge: no Work Instructions Return To Work: 3 days (WHEN PAIN IS CONTROLLED AND YOU HAVE A RIDE TO WORK ) Lifting Limitations: none Medical Emergencies . Who to Call and When: Medical Emergencies: If at any time you feel your situation is an emergency, please call 911 immediately. . Non-Emergent Contact Non-Emergency issues call your: Primary Care Provider Call Non-Emergent contact if: you have a fever, temperature is above 101.5 . "Provider Documentation" section prepared by Ck Richardson. .
[2017-07-16 08:39] VITALS: BP 96/66; PULSE 73; TEMP 36.6; O2SAT 98
[2017-07-16] MEDS: DOCUSATE SODIUM 100 MG CAP PO SCH (08:57)
[2017-07-16] MEDS: DOCUSATE SODIUM/SENNA 50/8.6MG TAB PO SCH (08:58)
[2017-07-16] MEDS: ASPIRIN 325 MG ECTAB PO SCH (08:58)
[2017-07-16] MEDS: FERROUS SULFATE 325 MG TAB PO SCH (08:58)
[2017-07-16] MEDS: MULTIVITAMIN TAB PO SCH (08:59)
[2017-07-16] MEDS: FLUTICASONE PROPIONATE NA SPR 16 GM BTL SCH (08:59)
[2017-07-16] MEDS: MONTELUKAST SOD 10 MG TAB PO SCH (08:59)
[2017-07-16] MEDS ORDERED: FRRS300 PO (12:29)
[2017-07-16] MEDS ORDERED: SENN8.6T7 PO (12:29)
[2017-07-16] MEDS ORDERED: MRLP17 OR (12:29)
--- NOTE | 2017-07-16 14:20 | Progress Note ---
Subjective Date of Service: Jul 16, 2017. Subjective Pt evaluation today including: conversation w/ patient, physical exam, chart review, lab review, review of studies, review of inpatient medication list Pain: CONTROLLED PO Intake: adequate Appears stable today Review of Systems Review of system Constitutional: No fever / no chills / no sweats / no weakness / no fatigue Eyes: no blurring of vision / no eye pain / no discharge / no redness ENT: no hearing loss / no epistaxis /no swallowing problems Respiratory: no cough / no wheezing / no SOB / no hemoptysis Cardiovascular: no Chest pain / no lower extremity edema / no palpitation Abdomen: no pain / no nausea / no vomiting / no constipation Musculoskeletal: no joint pain / no muscle pain / no joint swelling Genitourinary: no dysuria / no incontinence / no urinary retention Neurologic: no focal weakness / no numbness/tingling / no ataxia Psychiatric: no depression symptoms / no anxiety / no insomnia Endocrine: no excessive thirst / no excessive urination Hematologic: no abnormal bleeding / no bruising / no LN swelling Skin: No rash / no pallor Objective Vital Signs Date Time Temp Pulse Resp B/P (MAP) Pulse Ox O2 Delivery O2 Flow Rate FiO2 07/16/17 08:39 36.6 73 16 98 Room Air 07/16/17 06:57 36.6 73 16 96/66 (76) 98 Room Air 07/16/17 06:10 101/69 (80) 07/15/17 23:50 92/58 (69) 07/15/17 23:50 Room Air 07/15/17 23:05 36.5 88 15 85/53 (64) 98 Room Air 07/15/17 16:15 Room Air 07/15/17 15:08 36.5 71 16 100/68 (79) 100 Room Air Physical Exam Comments: Physical examination General patient appears to be comfortable, not in acute distress HEENT: Atraumatic , normocephalic /no jaundice /no pallor /anicteric /no dry mucous membrane /normal external ear inspection Neck: Supple /no swelling /central trach Heart: S1/S2 normal/regular rate and rhythm/no gallop /no rub /no murmur Lungs: Clear to auscultation bilaterally/normal chest with expansion/no rhonchi/ no rales/no wheezing/no use of accessory muscles of respiration Abdomen: Soft/nontender/no guarding/no rebound/no organomegaly/no pulsatile mass Musculoskeletal: No swelling/no edema/no tenderness/normal range of motion Neuro exam: Awake alert oriented 3/cranial nerves II through XII appear to be intact/sensation intact/moves all extremities/no abnormal movements Psychiatric evaluation: No depressed mood/normal affect Skin: No rash on exposed skin area/no erythema Extremity: Normal pulse/no pitting edema/no clubbing or cyanosis Endocrine/lymphatic: No obvious lymphadenopathy /no lymphedema Laboratory Results Last 24 Hours Test 07/15/17 18:58 07/16/17 06:42 Hemoglobin 9.4 g/dL 8.8 g/dL Hematocrit 27.3 % 26.4 % White Blood Count 9.19 K/uL Red Blood Count 2.95 M/uL Mean Corpuscular Volume 89.5 fL Mean Corpuscular Hemoglobin 29.8 pg Mean Corpuscular Hemoglobin Concent 33.3 g/dl Platelet Count 172 K/uL Mean Platelet Volume 10.3 fL Neutrophils (%) (Auto) 65.7 % Lymphocytes (%) (Auto) 24.9 % Monocytes (%) (Auto) 8.6 % Eosinophils (%) (Auto) 0.4 % Basophils (%) (Auto) 0.1 % Neutrophils # (Auto) 6.03 K/uL Lymphocytes # (Auto) 2.29 K/uL Monocytes # (Auto) 0.79 K/uL Eosinophils # (Auto) 0.04 K/uL Basophils # (Auto) 0.01 K/uL RDW Standard Deviation 46.5 fL RDW Coefficient of Variation 14.2 % Immature Granulocyte % (Auto) 0.3 % Immature Granulocyte # (Auto) 0.03 K/uL Red Blood Cell Morphology Unremarkable Sodium Level 140 mmol/L Potassium Level 4.0 mmol/L Chloride Level 111 mmol/L Carbon Dioxide Level 25 mmol/L Anion Gap 4.0 mmol/L Blood Urea Nitrogen 13 mg/dl Creatinine 0.80 mg/dl Est Creatinine Clear Calc Drug Dose 77.7 ml/min Estimated GFR () 95.5 Estimated GFR (Non- 82.4 BUN/Creatinine Ratio 16.2 Random Glucose 109 mg/dl Calcium Level 8.6 mg/dl Total Bilirubin 0.5 mg/dl Aspartate Amino Transf (AST/SGOT) 17 U/L Alanine Aminotransferase (ALT/SGPT) 18 U/L Alkaline Phosphatase 56 U/L Total Protein 6.0 gm/dl Albumin 2.7 gm/dl Globulin 3.3 gm/dl Albumin/Globulin Ratio 0.8 Assessment and Plan Assessment: S/P Presyncope / Vasovagal Acute blood loss anemia, hemoglobin dropped from 15 to 9.4 g, currently stable Hypovolemic hypotension severe osteoarthritis that failed outpatient conservative measures. Patient presented to the hospital for an elective orthopedic procedure Plan Status post R ONI, went uneventful full Appears to be stable, from the medical aspect patient can be discharged on oral iron supplement plus stool softener Patient needs to recheck her blood count within 2-3 weeks as an outpatient Also might need to do a full anemia study with her primary care physician if there is no improvement in her blood cell count
--- NOTE | 2017-07-16 16:33 | Discharge Summary ---
Orthopedic Discharge Summary Admission Date/Reason Jul 14, 2017 at 11:30 Right Hip Degenerative Joint Disease. Discharge Date/Disposition Jul 16, 2017 Home with services Diagnosis Principal Diagnosis: RIGHT HIP DEGENERATIVE JOINT DISEASE Procedure(s) Performed RIGHT ANTERIOR TOTAL HIP ARTHROPLASTY Consultations NONE Medication Reconciliation New Medications: Acetaminophen/Codeine (Tylenol W/Codeine #3) 300 Mg/30 Mg Tab 1 TAB PO Q6 PRN for Pain, #60 TAB Polyethylene (Miralax) 17 Gm Pow 17 GM OR DAILY for 30 Days, #30 Ferrous Sulfate (Ferrous Sulfate) 325 Mg Tab 325 MG PO BIDM for 30 Days, #60 TAB Sennosides-Docusate Sodium (Senokot S) 1 Tab Tab 1 TAB PO BID for 30 Days, #60 TAB Continued Medications: Acetaminophen (Tylenol) 325 Mg Tab 325 MG PO QD PRN for Pain, TAB Black Pepper-Turmeric (Turmeric Curcumin Complex 500-3 mg) 1 Cap Cap 1 CAP PO QAM dose is 740 mg Cholecalciferol (Vitamin D3) 2,000 Unit Cap 1 CAP PO QAM for 30 Days, #30 CAP 3 Refills Fluticasone Propionate (Nasal) (Flonase Allergy Relief) 50 Mcg/Act Spr 1 SPRAY NA QAM Montelukast Sodium (Singulair) 10 Mg Tab 10 MG PO QAM, TAB Admission Physical Exam As per Admitting History & Physical. Hospital Course Ritu is a pleasant 57-year-old female who presented to my office with chronic right groin that was progressively worsening. X-rays, MRI and clinical examination were diagnostic for primary osteoarthritis of the left hip as well as AVN of the femoral head. After failing conservative treatment, she elected to undergo a right anterior total hip arthroplasty. On 07/14/2017 she arrived at [facility] and underwent a right anterior total hip replacement without complications. It was done through a direct anterior approach. Postoperatively, she was placed on Aspirin 325mg BID for DVT prophylaxis. Hospital course was uneventful. On postop day #1 her H\T\H was stable and her vital signs remained stable. She was ambulating well with physical therapy. Her pain was controlled. On post- op day #2 her pain was slightly increased from the previous day but was well controlled with oral medication. She was given printed discharge instructions. She is to take ASA 325 BID, as well as wear her BALA stockings for DVT prophylaxis. She will be discharged to home with home health. She is to follow -up in the clinic in 10-14 days post operatively. If she has any questions or concerns she is to call the office at [phone]. Discharge Instructions Please refer to the electronic Patient Visit Report (Discharge Instructions) for additional information.
== END 2017-07-16 14:01 | disposition home health service (06) | DRG 470 ==
LOC: C.ACU 08:51 → C.3E 11:30 → ENRESERV 12:53
PROVIDERS: ADMIT Orthopaedic Surgery; ATTEND Orthopaedic Surgery
PROC: 0SR903Z Replacement of Right Hip Joint with Ceramic Synthetic Substitute, Open Approach (ICD-10-PCS; principal; 2017-07-14 11:00)
DX: M16.11 Unilateral primary osteoarthritis, right hip (principal); M87.051 Idiopathic aseptic necrosis of right femur; Z83.3 Family history of diabetes mellitus; Z88.0 Allergy status to penicillin